=== PATIENT | female | born 1995 | race Caucasian/White ===

== ENCOUNTER 2022-05-03 13:57 | Inpatient (IN) | payer BC, SELFPAY ==
[2022-05-03] VITALS (10 sets, daily range): BP systolic 105–165; BP diastolic 76–108; PULSE 106–147; RESP 17–37; TEMP 37.2–37.4; O2SAT 96–100
--- NOTE | ~2022-05-03 | XR_ITS ---
EXAMINATION: XR lumbar spine 2-3V DATE: 05/03/2022 20:59 INDICATION: Low back pain TECHNIQUE: Anteroposterior and lateral views of the lumbar spine, and cone-down lateral view of the l umbosacral junction were obtained. COMPARISON: None. FINDINGS: Bone alignment is normal. There is no fracture. There is partial fusion of the L4 and L5 ve rtebral bodies associated loss of intervertebral disc space. The intervertebral disc space heights ar e otherwise maintained. IMPRESSION: 1. Partial fusion of the L4 and L5 vertebral bodies without acute osseous abnormality. Reviewed, dictated and finalized at location F. IMPRESSION: 1. Partial fusion of the L4 and L5 vertebral bodies without acute osseous abnor mality.
--- NOTE | ~2022-05-03 | XR_ITS ---
EXAMINATION: XR thoracic spine 2V DATE: 05/03/2022 20:58 INDICATION: Thoracic back pain TECHNIQUE: AP, lateral and lateral swimmer's views of the thoracic spine were obtained. COMPARISON: None. FINDINGS: There is no fracture, dislocation, or subluxation. The vertebral body heights, alignment, a nd intervertebral disc spaces are normal. The paravertebral soft tissues are unremarkable. IMPRESSION: 1. No acute osseous abnormality. Reviewed, dictated and finalized at location F.
--- NOTE | 2022-05-03 14:19 | ECG_ITS ---
Measurements Intervals [place] Rate: 133 P: 54 KS: 149 QRS: -9 QRSD: 81 T: 49 QT: 320 QTc: 478 Interpretive Statements SINUS TACHYCARDIA NONSPECIFIC ST ABNORMALITY BORDERLINE ECG NO PREVIOUS ECG AVAILABLE FOR COMPARISON Electronically Signed On 05-03-2022 17:58:02 CDT by Josemanuel Andrade M.D.
[2022-05-03 14:21] LABS: Glucose Point of Care 452 mg/dl (65-105)
--- NOTE | 2022-05-03 14:27 | ED.BACK ---
HPI - Back Pain/Injury General Chief Complaint: Back Pain/Injury Stated Complaint: abd pain to flank Time Seen by Provider: 05/03/22 14:11 History of Present Illness HPI Narrative: Pt presents with mid back pain for a couple of days but denies injury. Pt denies numbness or weakness or problems with bladder or bowels. Pt admits to excessive thirst but is not aware of being diabetic although her father is diabetic. Pt denies fever or dysuria or frequency. Related Data Home Medications Medication Instructions Recorded Confirmed No Home Medications 05/03/22 05/03/22 Allergies Allergy/AdvReac Type Severity Reaction Status Date / Time No Known Allergies Allergy Verified 05/03/22 14:14 Review of Systems Review of Systems: All systems reviewed & are unremarkable except as noted in HPI and below Exam Const: General: cooperative, alert and uncomfortable Orientation/consciousness: patient oriented x3 Limitations: no limitations HENMT: Mouth: Yes dry mucous membranes Neck: Neck: normal visual inspection, full ROM, no lymphadenopathy and supple Chest: Chest palpation & inspection: normal inspection of the chest Resp: Effort & Inspection: normal respiratory effort and able to speak in complete sentences (tachypneic) Auscultation: clear to auscultation bilaterally Percussion: percussion normal Cardio: Palpation: normal PMI Rate: tachycardic Rhythm: regular rhythm Peripheral pulses: Peripheral pulses 2+ throughout GI: Inspection: normal to inspection GI Palp: Yes Soft to palpation Auscultation: normal bowel sounds Back/Spine/Pelvis: Back: CVA tenderness Skin: General skin exam: normal color Neuro: General: patient oriented x3, no focal motor deficits and CN's II-XI intact bilaterally Cranial nerves: Yes Nystagmus not present Cognition (Neuro): normal cognition Speech: normal speech Motor exam (neuro): 5/5 motor strength present throughout Sensory Exam: normal sensation Extrem: General: normal to inspection, full ROM, capillary refill normal and no clubbing, cyanosis or edema Psych: Appearance: grossly normal Mental Status: mental status grossly normal Speech and movement: Normal speech and movement present Affect: Anxious affect present Attitude: cooperative Thought process: Normal thought process present Course Course Emergency Course: d/w dr kim said give more IVF and admit to HM and ICU d/w missy tafoya will see pt Vital Signs Vital signs: Vital Signs Pulse Rate 145 H 05/03/22 14:06 Respiratory Rate 32 H 05/03/22 14:06 Blood Pressure 148/98 H 05/03/22 14:06 Pulse Oximetry 98 05/03/22 14:06 Temperature 98.9 F 05/03/22 14:10 Pulse Rate 120 H 05/03/22 16:49 Respiratory Rate 31 H 05/03/22 16:49 Blood Pressure 129/85 05/03/22 16:49 Pulse Oximetry 100 05/03/22 16:49 Oxygen Delivery Room Air 05/03/22 14:10 MDM - Back Pain/Injury Lab Data Result diagrams: 05/03/22 15:14 05/03/22 15:14 Labs: Lab Results 05/03/22 05/03/22 05/03/22 Range/Units 14:07 14:44 15:14 WBC 15.9 H (4.5-10.0) K/mm3 RBC 5.56 H (4.2-5.4) M/mm3 Hgb 16.5 H (12.0-15.0) g/dL Hct 52.0 H (37.0-47.0) % MCV 93.5 (80-100) fl MCH 29.7 (26-34) pg MCHC 31.7 L (32-36) g/dl RDW 12.3 (11.5-14.5) % Plt Count 380 H (150-375) k/mm3 MPV 9.4 (7.4-10.4) fl Immature Gran % (Auto) 1.3 H (0-0.5) % Neut % (Auto) 80.5 H (45.5-73.1) % Lymph % (Auto) 11.1 L (18.3-44.2) % [place] % (Auto) 6.3 (2.6-8.5) % Eos % (Auto) 0.1 (0-4.4) % Baso % (Auto) 0.7 (0.2-1.2) % Lymph # (Auto) 1.77 (0.9-3.2) K/mm3 [place] # (Auto) 1.0 H (0.1-0.6) K/mm3 Eos # (Auto) 0.0 (0-0.3) K/mm3 Baso # (Auto) 0.1 (0.0-0.1) K/mm3 Abs Immat Gran (auto) 0.21 H (0.00-0.031) K/mm3 Absolute Neuts (auto) 12.8 H (1.3-6.7) K/mm3 Absolute Nucleated RBC 0.0 (0.0-0.012) K/mm3 Nucleated RBC % 0.0 (0.0-0.
[2022-05-03] MEDS: SODIUM CHLORIDE 0.9% IV 1,000 ML 999 ML IV CONT ×4 (14:39→18:38)
[2022-05-03] MEDS: fentaNYL CITRATE INJ (*CRX) 100 MCG/2 ML VIAL 50 MCG IV PUSH (14:40)
[2022-05-03] MEDS: ONDANSETRON INJ 4 MG/2 ML VIAL IV PUSH (14:40)
[2022-05-03] MEDS: INSULIN HUMAN REGULAR (*BKC) 100 UNITS/ML 8 UNITS IV PUSH (14:40)
[2022-05-03 14:59] LABS: Appearance Urine Clear (Clear); Bilirubin Urine 1+ (Negative); Blood Urine 1+ (Negative); Color Urine Yellow (Yellow); Glucose Urine UA 2+ mg/dL (Negative); Ketones Urine 4+ mg/dL (Negative); Leukocyte Esterase Ur Negative LEU/UL (Negative); Nitrate Urine Negative (Negative); Protein Urine 3+ mg/dL (Negative); Specific Grav Ur >= 1.030 (1.001-1.035); Urobilinogen Urine 0.2 mg/dL (<2.0)
[2022-05-03 15:03] LABS: Mucus Urine Rare /lpf; Squamous Epithelial Cell Urine Many /hpf (Few); WBC Urine 0-3 /hpf
[2022-05-03 15:05] LABS: Add Urine Microscopic? YES
[2022-05-03 15:19] LABS: Basophils Absolute Auto 0.1 K/mm3 (0.0-0.1); Basophils Percent Auto 0.7 % (0.2-1.2); Eosinophils Percent Auto 0.1 % (0-4.4); Hemoglobin 16.5 g/dL (12.0-15.0); Immature Granulocyte Absolute 0.21 K/mm3 (0.00-0.031); Immature Granulocyte Percent A 1.3 % (0-0.5); Lymphocytes Absolute Auto 1.77 K/mm3 (0.9-3.2); Lymphocytes Percent Auto 11.1 % (18.3-44.2); Mean Corpuscular HGB Conc 31.7 g/dl (32-36); Mean Corpuscular Hemoglobin 29.7 pg (26-34); Mean Corpuscular Volume 93.5 fl (80-100); Mean Platelet Volume 9.4 fl (7.4-10.4); Monocytes Percent Auto 6.3 % (2.6-8.5); Neutrophils Absolute Auto 12.8 K/mm3 (1.3-6.7); Neutrophils Percent Auto 80.5 % (45.5-73.1); Platelet Count Result 380 k/mm3 (150-375); Red Blood Count 5.56 M/mm3 (4.2-5.4); Red Cell Distribution Width 12.3 % (11.5-14.5); White Blood Count 15.9 K/mm3 (4.5-10.0)
[2022-05-03 15:27] LABS: Fractional Inspired Oxygen 21 %; HCO3 VBG 4.1 mEq/l (24.0-30.0); PO2 VBG 52.4 mmHg (35.0-45.0)
[2022-05-03 15:29] LABS: PCO2 VBG 21.8 mmHg (42.0-48.0); pH VBG 6.887 (7.300-7.400)
[2022-05-03 15:29] LABS: Alanine Aminotransferase 22 U/L (6-35); Alkaline Phosphatase 106 U/L (38-126); Aspartate Amino Transferase 23 U/L (14-36); Bilirubin,Total 0.5 mg/dL (0.2-1.3); Blood Urea Nitrogen 11 mg/dL (7-17); Calcium 8.9 mg/dL (8.4-10.2); Carbon Dioxide < 5 mmol/L (22-30); Chloride 107 mmol/L (98-107); Estimated CRCL calculation 93 ml/min; Estimated Glomerular Filt Rate > 60; Glucose 424 mg/dL (65-110); Lactic Acid Reflex 2.4 mmol/L (0.7-2.0); Lipase 482 U/L (23-300); Potassium 4.4 mmol/L (3.4-5.0); Sodium 138 mmol/L (137-145)
[2022-05-03 15:46] LABS: INR 1.3; Partial Thromboplastin Time 23.9 SECONDS (22.3-36.8); Prothrombin Time 15.9 Seconds (11.1-14.7)
[2022-05-03 16:06] LABS: Glucose Point of Care 345 mg/dl (65-105)
[2022-05-03] MEDS: INSULIN HUMAN REGULAR (*BKC) 100 UNITS in SODIUM CHLORIDE 0.9% IV 99 ML 7.3 UNITS IV CONT (16:44)
[2022-05-03 17:19] LABS: Glucose Point of Care 337 mg/dl (65-105)
--- NOTE | 2022-05-03 17:34 | PM.IMHP ---
H&P: [facility] History of Present Illness Date/Time: 05/03/22 17:34 Chief Complaint: Back pain Narrative: This 26-year-old female patient with no past medical history presents to the emergency room today with having complaints of mid back pain for the past couple of days. There was no acute injury to cause this pain. She denied any distal paresthesias and/or deficits in range of motion and she denied any saddle anesthesia and or loss of bowel or bladder control. She also endorsed being polydipsic seen she could not quite her thirst, and she had a very poor appetite. She notes that she has still been able to workout as usual and has not had any increased level of fatigue. She denies any other acute pain or complaints such as shortness of breath, chest pain, nausea, vomiting, diarrhea, polyuria, nocturia. She does share with me that her sister that is 2 years older than her was just recently diagnosed as a type 1 diabetic. In addition her father is also a diabetic. She takes no medications on a daily basis she has no medical allergies. Review of Systems Review of Systems: As noted in [facility] Family History Family History (Updated 05/03/22 @ 17:41 by ANDRE Crow) Other Diabetes mellitus Meds Home Medications and Allergies Home Medications Medication Instructions Recorded Confirmed Type No Home Medications 05/03/22 05/03/22 History Allergies Allergy/AdvReac Type Severity Reaction Status Date / Time No Known Allergies Allergy Verified 05/03/22 14:14 Vital Signs Vital Signs - 24 hr 05/03/22 14:10 05/03/22 14:06 05/03/22 14:31 Temperature 98.9 F Pulse Rate 147 H 145 H 137 H Respiratory Rate 37 H 32 H 34 H Blood Pressure 148/98 H 148/98 H 165/108 H Pulse Oximetry 97 98 96 Oxygen Delivery Room Air 05/03/22 15:01 05/03/22 16:49 Temperature Pulse Rate 129 H 120 H Respiratory Rate 26 H 31 H Blood Pressure 160/100 H 129/85 Pulse Oximetry 99 100 Oxygen Delivery Exam Const: General: comfortable Other: Ketotic breath noted on exam. Pt. appears acutely ill but comfortable. HENMT: Ears: TM's normal bilaterally General nose exam: Normal nares present Mouth: Yes dry mucous membranes and Yes Abnormal oral and palatal mucosa present other (Dry and pasty. Lips are chapped.) Eyes: General: appearance normal, both eyes and all related structures Sclera: sclerae normal Pupils: Equal, round and reactive pupils present EOM: EOMs intact bilaterally Neck: Neck: supple and no JVD Thyroid: thyroid normal Carotids: no bruits Lymphatic: lymphadenopathy not noted Chest: Other: No tenderness to palpation. Resp: Effort & Inspection: abnormal respiratory effort (Pt. with Kussmaul respirations.) Auscultation: clear to auscultation bilaterally Cardio: Rate: tachycardic Rhythm: regular rhythm Heart sounds: no gallops, no murmurs and no rubs Other: S1 and S2 present without any S3, S4, m,r,g,h GI: Inspection: non-distended GI Palp: Yes Soft to palpation, No Tenderness to palpation present (GI) and No Guarding due to palpation present (GI) Auscultation: normal bowel sounds Back/Spine/Pelvis: Back: no CVA tenderness Cervical Spine: normal cervical lordosis and cervical ROM normal Thoracic/Lumbar Spine: thoracic and lumbar spine normal to inspection, straight leg raise negative bilaterally, pain with thoraco-lumbar ROM, paraspinal muscle tenderness and No thoraco-lumbar ROM limited Sacroiliac joints: on the right nontender and on the left nontender Skin: General skin exam: normal color and no rashes or lesions noted Neuro: General: gait normal Speech: normal speech Motor exam (neuro): 5/5 motor strength present throughout and Normal motor muscle tone present throughout Sensory Exam: normal sensation Extrem: General: normal to inspection, no edema and no pedal edema Other: Pt. freely and easily MAEW. Psych: Mental Status: mental status grossly normal Affect: normal affect
[2022-05-03 17:45] LABS: Glucose Point of Care 297 mg/dl (65-105)
--- NOTE | 2022-05-03 18:08 | PC.NURSE ---
Notified Dr. Colon that patient has arrived in ICU. New orders for DKA protocol set as well as 1L NS bolus before starting fluids on the DKA protocol.
[2022-05-03 18:17] LABS: Reflex Lactic Acid Yes or No Add Lactic
[2022-05-03 18:38] LABS: Basophils Absolute Auto 0.1 K/mm3 (0.0-0.1); Basophils Percent Auto 0.5 % (0.2-1.2); Hematocrit 49.3 % (37.0-47.0); Immature Granulocyte Absolute 0.26 K/mm3 (0.00-0.031); Immature Granulocyte Percent A 1.4 % (0-0.5); Lymphocytes Absolute Auto 2.09 K/mm3 (0.9-3.2); Lymphocytes Percent Auto 11.2 % (18.3-44.2); Mean Corpuscular HGB Conc 32.5 g/dl (32-36); Mean Corpuscular Hemoglobin 30.1 pg (26-34); Mean Corpuscular Volume 92.8 fl (80-100); Mean Platelet Volume 9.7 fl (7.4-10.4); Monocytes Absolute Auto 0.9 K/mm3 (0.1-0.6); Monocytes Percent Auto 4.9 % (2.6-8.5); Neutrophils Absolute Auto 15.2 K/mm3 (1.3-6.7); Platelet Count Result 287 k/mm3 (150-375); Red Blood Count 5.31 M/mm3 (4.2-5.4); Red Cell Distribution Width 12.2 % (11.5-14.5); White Blood Count 18.6 K/mm3 (4.5-10.0)
[2022-05-03 18:51] LABS: SPREG INTERNAL CONTROL Positive; Serum Qual hCG Negative
[2022-05-03 18:51] LABS: Glucose Point of Care 237 mg/dl (65-105)
[2022-05-03 18:52] LABS: Alanine Aminotransferase 19 U/L (6-35); Albumin Level 4.8 g/dL (3.5-5.1); Alkaline Phosphatase 87 U/L (38-126); Aspartate Amino Transferase 18 U/L (14-36); Bilirubin,Total 0.5 mg/dL (0.2-1.3); Blood Urea Nitrogen 10 mg/dL (7-17); Calcium 8.6 mg/dL (8.4-10.2); Carbon Dioxide < 5 mmol/L (22-30); Chloride 113 mmol/L (98-107); Estimated CRCL calculation 124 ml/min; Estimated Glomerular Filt Rate > 60; Glucose 279 mg/dL (65-110); Potassium 4.7 mmol/L (3.4-5.0); Sodium 138 mmol/L (137-145)
[2022-05-03 18:52] LABS: Lactic Acid Reflex 2.1 mmol/L (0.7-2.0)
[2022-05-03 19:16] LABS: Hemoglobin A1C > 14.0 % (<5.7)
[2022-05-03 19:17] LABS: Beta-Hydroxybutyrate/Acetoacetate 6.37 mmol/L (0.02-0.27)
[2022-05-03] MEDS: KCL 20 MEQ/D5/0.45% SOD CHL 1,000 ML 150 ML IV CONT (19:41)
[2022-05-03 19:53] LABS: Glucose Point of Care 171 mg/dl (65-105)
[2022-05-03] MEDS: fentaNYL CITRATE INJ (*CRX) 100 MCG/2 ML VIAL 25 MCG IV PUSH (20:39)
[2022-05-03 21:15] LABS: Glucose Point of Care 161 mg/dl (65-105)
[2022-05-03 22:07] LABS: Glucose Point of Care 169 mg/dl (65-105)
[2022-05-03 23:07] LABS: Glucose Point of Care 183 mg/dl (65-105)
[2022-05-04] VITALS (10 sets, daily range): BP systolic 91–122; BP diastolic 56–89; PULSE 93–112; RESP 14–20; TEMP 36.4–37.8; O2SAT 98–100
[2022-05-04 00:14] LABS: Glucose Point of Care 165 mg/dl (65-105)
[2022-05-04 01:22] LABS: Glucose Point of Care 161 mg/dl (65-105)
[2022-05-04] MEDS: KCL 20 MEQ/D5/0.45% SOD CHL 1,000 ML 150 ML IV CONT ×2 (02:05→09:04)
[2022-05-04 02:08] LABS: Anion Gap 10 mmol/L (8-16); Blood Urea Nitrogen 6 mg/dL (7-17); Carbon Dioxide 13 mmol/L (22-30); Chloride 113 mmol/L (98-107); Estimated CRCL calculation 178 ml/min; Estimated Glomerular Filt Rate > 60; Glucose 159 mg/dL (65-110); Potassium 3.5 mmol/L (3.4-5.0); Sodium 136 mmol/L (137-145)
[2022-05-04 02:10] LABS: Glucose Point of Care 151 mg/dl (65-105)
[2022-05-04 03:10] LABS: Glucose Point of Care 150 mg/dl (65-105)
[2022-05-04 04:26] LABS: Glucose Point of Care 137 mg/dl (65-105)
[2022-05-04 05:15] LABS: Glucose Point of Care 117 mg/dl (65-105)
[2022-05-04] MEDS: ONDANSETRON INJ 4 MG/2 ML VIAL IV PUSH (05:19)
[2022-05-04 06:11] LABS: Glucose Point of Care 139 mg/dl (65-105)
[2022-05-04 06:40] LABS: Anion Gap 10 mmol/L (8-16); Blood Urea Nitrogen 6 mg/dL (7-17); Calcium 8.1 mg/dL (8.4-10.2); Carbon Dioxide 12 mmol/L (22-30); Chloride 113 mmol/L (98-107); Estimated CRCL calculation 231 ml/min; Estimated Glomerular Filt Rate > 60; Glucose 140 mg/dL (65-110); Lipase 69 U/L (23-300); Potassium 3.8 mmol/L (3.4-5.0); Sodium 135 mmol/L (137-145)
[2022-05-04 07:01] LABS: Glucose Point of Care 147 mg/dl (65-105)
[2022-05-04] MEDS: LACTATED RINGERS 1,000 ML 999 ML IV CONT (07:57)
[2022-05-04 08:08] LABS: Glucose Point of Care 152 mg/dl (65-105)
[2022-05-04 08:59] LABS: Glucose Point of Care 127 mg/dl (65-105)
[2022-05-04 10:06] LABS: Glucose Point of Care 127 mg/dl (65-105)
[2022-05-04 10:19] LABS: Anion Gap 3 mmol/L (8-16); Blood Urea Nitrogen 4 mg/dL (7-17); Carbon Dioxide 18 mmol/L (22-30); Chloride 115 mmol/L (98-107); Estimated CRCL calculation 231 ml/min; Estimated Glomerular Filt Rate > 60; Glucose 120 mg/dL (65-110); Potassium 3.3 mmol/L (3.4-5.0); Sodium 136 mmol/L (137-145)
[2022-05-04] MEDS: INSULIN HUMAN REGULAR (*BKC) 100 UNITS in SODIUM CHLORIDE 0.9% IV 99 ML IV CONT (10:31)
[2022-05-04] MEDS: INSULIN GLARGINE (*BKC) 100 UNITS/ML 30 UNITS SUB-Q (11:20)
[2022-05-04] MEDS: POTASSIUM CHLORIDE 20 MEQ TABLET 40 MEQ PO (11:23)
[2022-05-04 11:31] LABS: Glucose Point of Care 129 mg/dl (65-105)
--- NOTE | 2022-05-04 12:01 | PCDIET ---
Physician consult for DKA. See Nutritional Teaching Intervention. Thank you for the consult.
[2022-05-04 12:31] LABS: Glucose Point of Care 140 mg/dl (65-105)
--- NOTE | 2022-05-04 13:36 | WPDCNINT ---
Assessment and Plan Assessment and plan (1) DKA (diabetic ketoacidosis): Code(s): E11.10 - Type 2 diabetes mellitus with ketoacidosis without coma Status: Acute Assessment and Plan: New onset diabetes with diabetic ketoacidosis. Patient has a family history of diabetes were her father and her sister have diabetes -patient was complaining of polydipsia, back pain. In the ER patient was found to have elevated blood sugars for positive beta hydroxybutyrate, anion gap metabolic acidosis. Was given 2 L IV fluid bolus and started on insulin infusion per DKA protocol -patient was given an additional 1 L fluid bolus in the ICU this morning -repeat labs showed normal anion gap, blood sugar is normal limits, patient was transition to long-acting insulin and sliding scale insulin -will start diabetic diet -hemoglobin A1c > 14 -will have dietitian and chemical educator follow up patient (2) Strain of lumbar region: Code(s): S39.012A - Strain of muscle, fascia and tendon of lower back, initial encounter Status: Acute Assessment and Plan: X-ray of the thoracic spine showed no acute osseous abnormality. Lumbar spine x-ray showed partial fusion of L4 and L5 vertebral bodies without acute osseous abnormality. -denies any pain this morning Plan -Transition patient to long-acting insulin Lantus and sliding scale insulin Accu-Cheks -dietitian and chemical educator to follow the patient -will start diabetic diet Additional Plan Code status: Full code Critical care time spent: 44 minutes This dictation may have been done utilizing a voice recognition system. Attempts have been made to correct errors. However, there may be uncorrected grammatical, spelling, and recognition errors present. Due to a high probability of clinically significant, life threatening deterioration, the patient required my highest level of preparedness to intervene emergently and I personally spent this critical care time directly and personally managing the patient. This critical care time included obtaining a history; examining the patient; pulse oximetry; ordering and review of studies; arranging urgent treatment with development of a management plan; evaluation of patient's response to treatment; frequent reassessment; and discussions with other providers. It was exclusive of separately billable procedures and treating other patients and teaching time. Please see Assessment and Plan section and the rest of the note for further information on patient assessment and treatment Chair And Couch Maker Consult Note Consult date: 05/04/22 Reason for consult: Diabetic ketoacidosis HPI: Cande Crawford is a 26 year old female with no significant past medical history presented to the ED on 05/03/2022 with complains of back pain, polydipsia, decreased appetite. Denies any weakness or numbness. She also denies any bladder or bowel problem. Denies any fevers, no dysuria. In the ER patient was found to have elevated blood sugars, anion gap metabolic acidosis and positive beta hydroxybutyrate. Serum hCG was negative in the ER. UA was also negative UTI but was positive for glucose, proteins, ketones. X-ray of the thoracic spine showed no acute osseous abnormality. Lumbar spine x-ray showed partial fusion of L4 and L5 vertebral bodies without acute osseous abnormality. Patient was given 2 L IV fluid bolus and started on insulin infusion and transferred to the ICU for further management. Patient seen and examined this morning in the ICU, pleasant female, not in acute distress. Denies any back pain, nausea vomiting. Denies any abdominal pain, chest pain, shortness when. Remains on insulin infusion, I have asked the bedside RN to given additional IV fluid bolus. Hemoglobin A1c is > 14.0. Review of Systems Review of Systems: All systems reviewed & are unremarkable except as noted in HPI and below [facility] Family History Family History (Updated 05/03/22 @ 18:48 by Korina
[2022-05-04 14:28] LABS: Anion Gap 7 mmol/L (8-16); Blood Urea Nitrogen 5 mg/dL (7-17); Calcium 8.3 mg/dL (8.4-10.2); Carbon Dioxide 18 mmol/L (22-30); Chloride 109 mmol/L (98-107); Estimated CRCL calculation 110 ml/min; Estimated Glomerular Filt Rate > 60; Glucose 263 mg/dL (65-110); Potassium 3.7 mmol/L (3.4-5.0); Sodium 134 mmol/L (137-145)
--- NOTE | 2022-05-04 14:53 | PC.NURSE ---
Report given to LUIS Avendaño. All questions answered. Pt transferred via wheelchair, accompanied by RN.
--- NOTE | 2022-05-04 15:00 | PC.NURSE ---
This patient, Cande Crawford, was received from ICU on 05/04/22 at 1523. Patient/family oriented to unit policies and routines. Report received from LUIS Segal.
[2022-05-04 16:30] LABS: Glucose Point of Care 228 mg/dl (65-105)
[2022-05-04] MEDS: INSULIN ASPART (*BKC) 100 UNITS/ML SUB-Q (16:32)
--- NOTE | 2022-05-04 17:19 | PM.IMPN ---
Progress Note: A&P Assessment and Plan (1) DKA (diabetic ketoacidosis): Code(s): E11.10 - Type 2 diabetes mellitus with ketoacidosis without coma Status: Acute (2) Strain of lumbar region: Code(s): S39.012A - Strain of muscle, fascia and tendon of lower back, initial encounter Status: Acute Plan 05/03/22 Patient admitted critically ill in DKA with new onset diabetes mellitus -admit patient to ICU -unable to calculate anion gap as CO2 is less than 5.? Lactic acid is 2.4.? Reflex lactic was ordered. -fish machine feeder has been consulted. -continue insulin drip -continue IV hydration, currently receiving 2nd bolus of 1 L. will follow ICU DKA order set. -will keep patient NPO -trend labs and vitals.: -will order plain film x-rays of thoracic and lumbar spine. For low back pain -pain management as needed. 05/04/22 Patient monitored overnight in the ICU on insulin drip anion gap closed and patient was cleared by fish machine feeder for discharge to general medical floor for ongoing care of new onset diabetes hemoglobin A1c > 14 patient was transition to long-acting insulin and sliding scale insulin diabetic diet Consult dietitian Consult clinical trial educator Subjective Date/time seen: 05/04/22 17:19 pt doing ok, has had diabetic nutritional educations still unable to inject herself. Pt advised to practice w RNs overnight with anticiption of dc tomorrow Exam Narrative: General: Pleasant female NAD HEENT: Moist oral mucosa,EOMI anicteric Neck: Supple, no JVD Respiratory: Clear to auscultation bilaterally, no wheezing, or crackles Cardiac: RRR, S1-S2 normal Abdomen: Soft, NTTP, nondistended Extremities: No edema, palpable pedal pulse Neuro: Alert, awake, oriented, nonfocal Skin: Warm and dry Psych: Normal affect and mentation Objective Data Vital Signs Vital Signs: Vital Signs - 24 hr 05/03/22 17:38 05/03/22 18:00 05/03/22 18:00 Temperature Pulse Rate 121 H 112 H 106 H Respiratory Rate 31 H 33 H Blood Pressure 124/89 120/77 Pulse Oximetry 100 99 Oxygen Delivery 05/03/22 19:50 05/03/22 20:00 05/03/22 22:00 Temperature 99.3 F Pulse Rate 107 H 110 H 113 H Respiratory Rate 19 Blood Pressure 116/86 Pulse Oximetry 100 Oxygen Delivery 05/03/22 20:00 05/03/22 22:00 05/04/22 00:00 Temperature 98.6 F Pulse Rate 113 H 110 H 112 H Respiratory Rate 17 17 17 Blood Pressure 105/76 92/56 L Pulse Oximetry 100 100 99 Oxygen Delivery Room Air 05/04/22 00:00 05/04/22 00:00 05/04/22 02:00 Temperature Pulse Rate 112 H 112 H 104 H Respiratory Rate 17 Blood Pressure Pulse Oximetry 99 Oxygen Delivery Room Air 05/04/22 02:00 05/04/22 04:00 05/04/22 04:00 Temperature 99.1 F Pulse Rate 104 H 103 H 103 H Respiratory Rate 16 14 Blood Pressure 91/60 L 99/66 L Pulse Oximetry 99 99 Oxygen Delivery 05/04/22 04:00 05/04/22 06:00 05/04/22 06:00 Temperature Pulse Rate 103 H 98 97 Respiratory Rate 14 19 Blood Pressure 94/60 L Pulse Oximetry 99 98 Oxygen Delivery Room Air 05/04/22 07:52 05/04/22 08:00 05/04/22 08:00 Temperature 100.1 F H Pulse Rate 95 93 Respiratory Rate 16 Blood Pressure 97/69 L Pulse Oximetry 99 Oxygen Delivery Room Air 05/04/22 10:00 05/04/22 10:00 05/04/22 12:00 Temperature Pulse Rate 96 97 96 Respiratory Rate 15 17 Blood Pressure 91/59 L Pulse Oximetry 98 99 Oxygen Delivery Room Air 05/04/22 12:00 05/04/22 12:00 05/04/22 13:17 Temperature 99.2 F Pulse Rate 97 99 Respiratory Rate 17 Blood Pressure 95/63 L Pulse Oximetry 98 Oxygen Delivery Intake/Output Intake/Output: Intake & Output 05/01/22 05/02/22 05/03/22 05/04/22 23:59 23:59 23:59 23:59 Intake Total 4000 4240.25 Output Total 3450 Balance 4000 790.25 Meds/Results Medications: Active Medications Generic Name Dose Route Start Last Admin Trade Name Freq PRN Reason Stop Dose Admin
[2022-05-04 18:32] LABS: Anion Gap 7 mmol/L (8-16); Blood Urea Nitrogen 7 mg/dL (7-17); Calcium 8.4 mg/dL (8.4-10.2); Carbon Dioxide 18 mmol/L (22-30); Chloride 111 mmol/L (98-107); Estimated CRCL calculation 149 ml/min; Estimated Glomerular Filt Rate > 60; Glucose 327 mg/dL (65-110); Potassium 3.4 mmol/L (3.4-5.0); Sodium 136 mmol/L (137-145)
[2022-05-04 21:04] LABS: Glucose Point of Care 249 mg/dl (65-105)
[2022-05-05 06:19] VITALS: BP 113/85; PULSE 95; RESP 14; TEMP 36.4; O2SAT 100
[2022-05-05 07:44] LABS: Glucose Point of Care 262 mg/dl (65-105)
[2022-05-05] MEDS: INSULIN ASPART (*BKC) 100 UNITS/ML SUB-Q ×3 (07:46→16:26)
[2022-05-05] MEDS: INSULIN GLARGINE (*BKC) 100 UNITS/ML 30 UNITS SUB-Q (07:47)
[2022-05-05 09:02] VITALS: O2SAT 98
[2022-05-05 11:39] LABS: Glucose Point of Care 222 mg/dl (65-105)
--- NOTE | 2022-05-05 12:25 | PM.DS ---
DS: Admitting Diagnosis Discharge Date 05/05/22 Admitting Diagnosis (1) DKA (diabetic ketoacidosis): ?Code(s): E11.10 - Type 2 diabetes mellitus with ketoacidosis without coma ?Status:?Acute ?Assessment and Plan: (2) Strain of lumbar region: ?Code(s): S39.012A - Strain of muscle, fascia and tendon of lower back, initial encounter ?Status:?Acute ?Assessment and Plan: DS: Discharge Diagnosis Discharge Diagnosis (1) DKA (diabetic ketoacidosis): Code(s): E11.10 - Type 2 diabetes mellitus with ketoacidosis without coma Status: Deleted (2) Strain of lumbar region: Code(s): S39.012A - Strain of muscle, fascia and tendon of lower back, initial encounter Status: Acute (3) Diabetes mellitus, new onset: Code(s): E11.9 - Type 2 diabetes mellitus without complications Status: Deleted (4) DM (diabetes mellitus) type 1, uncontrolled, with ketoacidosis: Code(s): E10.10 - Type 1 diabetes mellitus with ketoacidosis without coma Status: Acute (5) New onset type 1 diabetes mellitus, uncontrolled: Status: Acute DS: Summary Hospital Course Reason for hospitalization: back pain Hospital Course: This 26-year-old female patient with no past medical history presents to the emergency room today with having complaints of mid back pain for the past couple of days.? There was no acute injury to cause this pain.? She denied any distal paresthesias and/or deficits in range of motion and she denied any saddle anesthesia and or loss of bowel or bladder control.? She also endorsed being polydipsic seen she could not quite her thirst, and she had a very poor appetite.? She notes that she has still been able to workout as usual and has not had any increased level of fatigue. She denies any other acute pain or complaints such as shortness of breath, chest pain, nausea, vomiting, diarrhea, polyuria, nocturia.? She does share with me that her sister that is 2 years older than her was just recently diagnosed as a type 1 diabetic.? In addition her father is also a diabetic.? She takes no medications on a daily basis she has no medical allergies. 05/03/22 Patient admitted critically ill in DKA with new onset diabetes mellitus -admit patient to ICU -unable to calculate anion gap as CO2 is less than 5.? Lactic acid is 2.4.? Reflex lactic was ordered. -acrylic fabricator has been consulted. -continue insulin drip -continue IV hydration, currently receiving 2nd bolus of 1 L. will follow ICU DKA order set. -will keep patient NPO -trend labs and vitals.: -will order plain film x-rays of thoracic and lumbar spine.? For low back pain -pain management as needed. 05/04/22 Patient monitored overnight in the ICU on insulin drip anion gap closed and patient was cleared by acrylic fabricator for discharge to general medical floor for ongoing care of new onset diabetes hemoglobin A1c > 14 patient was transition to long-acting insulin and sliding scale insulin diabetic diet Consult dietitian Consult prosthodontist/educator 05/05/22 26-year-old female admitted with new onset type 1 diabetes in DKA. She was monitored in ICU and placed on insulin drip. Patient responded appropriately to medical therapy and was transition without complication to subcutaneous insulin. She was provided diabetic Education and was subsequently discharged home in stable condition with indications to follow up with her primary care physician for referral to Endocrinology for ongoing care. pt blood glucose not at goal but stable in the low 200s (did not get insulin last night) dc home on Lantus 35U q am w Med ISS and indications given for her to followup with her PCP for referral to Endocrinology. She is also requested to keep a BG journal to take back to her PCP at first available appt. pt does demonstrate ability to inject herself and to check her blood sugar prior to discharge She has been given diabetic Education Additionally, I have spoken with her abou
[2022-05-05 14:00] VITALS: BP 106/68; PULSE 105; RESP 14; TEMP 37.1; O2SAT 99
[2022-05-05 16:25] LABS: Glucose Point of Care 247 mg/dl (65-105)
== END 2022-05-05 17:11 | disposition home or self-care (01) | DRG 639 ==
LOC: ANHED 16:23 → ANHICU 17:13 → ANH2MED 05-04 16:27 → ANHICU 05-07 12:31
PROVIDERS: Nurse Practitioner Adult Health; Admitting Provider Chiropractor; Emergency Provider Emergency Medicine; Visit Provider Hospitalist
DX: E11.10 Type 2 diabetes mellitus with ketoacidosis without coma (principal); S39.012A Strain of muscle, fascia and tendon of lower back, initial encounter; F17.290 Nicotine dependence, other tobacco product, uncomplicated
CPT/HCPCS: 36415; 72070; 72100; 80048; 80053; 81001; 81025; 82010; 82803; 82948; 83036; 83605; 83690; 83735; 84100; 84443; 84703; 85025; 85610; 85730; 93005; 96361; 96365; 96375; 99285; A9270; J1815; J2405; J3010; J3480; J7030; J7120

== ENCOUNTER 2023-01-18 14:37 | Emergency (ER) | payer BC, SELFPAY ==
[2023-01-18] VITALS (10 sets, daily range): BP systolic 96–131; BP diastolic 63–85; PULSE 84–104; RESP 16–17; TEMP 36.6; O2SAT 98–100
[2023-01-18] MEDS: KETOROLAC 15 MG/ML VIAL (*BKC) IV PUSH (16:02)
[2023-01-18] MEDS: SODIUM CHLORIDE 0.9% IV 1,000 ML 999 ML IV CONT (16:02)
[2023-01-18] MEDS: diphenhydrAMINE HCl INJ 50 MG/ML VIAL 25 MG IV PUSH (16:03)
[2023-01-18] MEDS: PROCHLORPERAZINE EDISYLATE 10 MG/2 ML VIAL IV PUSH (16:03)
--- NOTE | 2023-01-18 16:51 | ED.GENADULT ---
HPI - General Adult General Chief complaint: Headache Stated complaint: headache Time Seen by Provider: 01/18/23 15:30 History of Present Illness HPI narrative: 27-year-old female with history of migraines presented to the emergency department for evaluation of persistent headache. Patient states that this morning she had onset of headache that did involve vision changes that had subsequent nausea and vomiting. Patient does have current photophobia. Patient states this headache started similar to her previous and patient has had these symptoms with her previous headaches. Patient denies anything unusual about this headache and its onset character or intensity. Related Data Allergies Allergy/AdvReac Type Severity Reaction Status Date / Time No Known Allergies Allergy Verified 01/18/23 15:31 Review of Systems Review of Systems: CONSTITUTIONAL: Denies fever, chills, or sweats. EYES: Denies visual changes, redness, or discharge. ENT: Denies rhinorrhea, congestion, sore throat, or otalgia. CARDIOVASCULAR: Denies chest pain, palpitations, or edema. RESPIRATORY: Denies cough or dyspnea. GASTROINTESTINAL: Denies abdominal pain, nausea, vomiting, or diarrhea. GENITOURINARY: Denies dysuria or hematuria. SKIN: Denies rash or itching. MUSCULOSKELETAL: Denies back pain, joint pain, or myalgia. NEUROLOGIC: See HPI [facility] Family History Family History (Updated 05/03/22 @ 18:48 by Shauna Tabares RN) Father Diabetes mellitus Sibling Diabetes mellitus Social History Social History Smoking status: Current every day smoker Tobacco type: e-cigarettes/vaping Additional smoking assessment comments: e-cigs x 1 month 2 years ago Alcohol intake: current Drinks per week: 3 Substance use type: other Other substance usage details: gummies Spiritual care concerns: No Exam Narrative: APPEARANCE: Well appearing, no pain, no distress, well-nourished. HEAD: normocephalic, atraumatic. EYES: PERRLA/EOMI, conjunctivae clear. NOSE: Normal no drainage EARS:TMS clear with good light reflex. THROAT: Pharynx clear, no exudate. NECK: Supple. No adenopathy, no masses. RESPIRATORY: Airway patent, respirations nonlabored. Clear to auscultation bilaterally, no rales, rhonchi, wheezing. CARDIOVASCULAR: Regular rate and rhythm without murmurs rubs or gallops. ABDOMINAL: Soft, nontender, nondistended, normal bowel sounds MUSCULOSKELETAL: Moves all extremities. Strength/ROM intact, No edema, No calf tenderness. NEURO: Alert. Cranial nerves II through XII intact. Grossly intact. No ataxia, no drift, normal strength and reflexes SKIN: Warm, dry. Normal Color Course Course Emergency Course: 27-year-old female with symptoms consistent with a migraine. Patient was treated with a migraine cocktail and had significant improvement. Patient was treated with IV saline, IV Toradol, IV Benadryl and IV Compazine. On reexamination patient states that her headache is resolved. Patient was encouraged of close follow-up with neurology. Patient was also encouraged to start taking a headache diary in order to identify different triggers for her headaches. All question concerns were addressed. Vital Signs Vital signs: Vital Signs Temperature 97.8 F 01/18/23 14:41 Pulse Rate 104 H 01/18/23 14:41 Respiratory Rate 16 01/18/23 14:41 Blood Pressure 131/85 01/18/23 14:41 Pulse Oximetry 100 01/18/23 14:41 Oxygen Delivery Room Air 01/18/23 14:41 Temperature 97.8 F 01/18/23 14:41 Pulse Rate 90 01/18/23 17:01 Respiratory Rate 17 01/18/23 17:01 Blood Pressure 118/83 01/18/23 17:01 Pulse Oximetry 100 01/18/23 17:01 Oxygen Delivery Room Air 01/18/23 14:41 Medical Decision Making Vital Signs Vital Signs: Vital Signs Temperature 97.8 F 01/18/23 14:41 Pulse Rate 104 H 01/18/23 14:41 Respiratory Rate 16 01/18/23 14:41 Blood Pressure 131/85
== END 2023-01-18 17:17 | disposition home or self-care (01) ==
PROVIDERS: Emergency Provider Emergency Medicine
DX: G43.909 Migraine, unspecified, not intractable, without status migrainosus (principal); F17.290 Nicotine dependence, other tobacco product, uncomplicated
CPT/HCPCS: 96361; 96374; 96375; 99284; J0780; J1200; J1885; J7030

== ENCOUNTER 2024-01-09 06:16 | Emergency (ER) | payer BC, SELFPAY ==
[2024-01-09 06:21] VITALS: BP 131/73; PULSE 97; RESP 18; TEMP 36.6; O2SAT 100
--- NOTE | 2024-01-09 06:39 | PC.NURSE ---
[facility] erp Dr. Muhammad Reglan 10 IV Push
[2024-01-09] MEDS: METOCLOPRAMIDE HCL INJ 10 MG/2 ML VIAL IV PUSH (06:41)
[2024-01-09 06:53] LABS: Basophils Percent Auto 0.3 % (0.2-1.2); Eosinophils Absolute Auto 0.2 K/mm3 (0-0.3); Eosinophils Percent Auto 1.4 % (0-4.4); Hematocrit 40.1 % (37.0-47.0); Hemoglobin 13.3 g/dL (12.0-15.0); Immature Granulocyte Absolute 0.04 K/mm3 (0.00-0.031); Immature Granulocyte Percent A 0.3 % (0-0.5); Lymphocytes Percent Auto 42.2 % (18.3-44.2); Mean Corpuscular HGB Conc 33.2 g/dl (32-36); Mean Corpuscular Hemoglobin 28.1 pg (26-34); Mean Corpuscular Volume 84.8 fl (80-100); Mean Platelet Volume 9.5 fl (7.4-10.4); Monocytes Absolute Auto 0.5 K/mm3 (0.1-0.6); Monocytes Percent Auto 4.7 % (2.6-8.5); Neutrophils Absolute Auto 5.9 K/mm3 (1.3-6.7); Neutrophils Percent Auto 51.1 % (45.5-73.1); Platelet Count Result 430 k/mm3 (150-375); Red Blood Count 4.73 M/mm3 (4.2-5.4); Red Cell Distribution Width 12.5 % (11.5-14.5); White Blood Count 11.6 K/mm3 (4.5-10.0)
[2024-01-09 07:02] LABS: Alanine Aminotransferase 23 U/L (6-35); Alkaline Phosphatase 83 U/L (38-126); Anion Gap 9 mmol/L (8-16); Aspartate Amino Transferase 29 U/L (14-36); Bilirubin,Total 0.6 mg/dL (0.2-1.3); Blood Urea Nitrogen 7 mg/dL (7-17); Calcium 9.4 mg/dL (8.4-10.2); Carbon Dioxide 23 mmol/L (22-30); Chloride 104 mmol/L (98-107); Estimated CRCL calculation 201 ml/min; Estimated Glomerular Filt Rate > 60; Glucose 151 mg/dL (65-110); Lipase 23 U/L (23-300); Potassium 3.8 mmol/L (3.4-5.0); Sodium 136 mmol/L (137-145)
[2024-01-09 07:20] LABS: Appearance Urine Clear (Clear); Bilirubin Urine Negative (Negative); Blood Urine Negative (Negative); Color Urine Yellow (Yellow); Glucose Urine UA Negative (Negative); Ketones Urine 1+ mg/dL (Negative); Leukocyte Esterase Ur Negative LEU/UL (Negative); Nitrate Urine Negative (Negative); Protein Urine Negative (Negative); Specific Grav Ur 1.015 (1.001-1.035); Urobilinogen Urine 0.2 mg/dL (<2.0); pH Urine 7.5 (5.0-9.0)
--- NOTE | 2024-01-09 07:20 | ED.GENADULT ---
HPI - General Adult General Chief complaint: Nausea/Vomiting/Diarrhea Stated complaint: n/v, headache, 8 weeks Time Seen by Provider: 01/09/24 07:03 History of Present Illness HPI narrative: Patient is a 28-year-old female who presents the emergency department this morning complaining of nausea, vomiting, and headache. Patient states that she is approximately 8 weeks , 1st and follows up with OBDr. Damon VIDALES through the [facility]. Patient states that she was prescribed oral Reglan and to use as needed, however, she is not been able to keep down her oral medications and decided to come to the emergency department for IV medications and IV hydration. Patient denies any additional symptoms including chest pain, shortness of breath, abdominal pain, dysuria, hematuria, vaginal bleeding or spotting, constipation, diarrhea, melena, hematochezia, fevers or chills. Patient also denies any dizziness, lightheadedness, blurry visions, focal weakness, numbness and or tingling. There are no other modifying, alleviating, or precipitating factors at this time. Related Data Allergies Allergy/AdvReac Type Severity Reaction Status Date / Time No Known Allergies Allergy Verified 01/09/24 06:24 Review of Systems Review of Systems: All systems are reviewed and are negative unless stated otherwise in the HPI. PMFSH Family History Family History Father Diabetes mellitus Sibling Diabetes mellitus Social History Social History Smoking status: Current every day smoker Tobacco type: e-cigarettes/vaping Additional smoking assessment comments: e-cigs x 1 month 2 years ago Alcohol intake: current Drinks per week: 3 Substance use type: other Other substance usage details: gummies Spiritual care concerns: No Exam Narrative: General: Alert, awake, afebrile, in no acute distress. HEENT: PERRL, no rhinorrhea, no post nasal drip, oropharynx clear. Neck: Trachea midline, no JVD, no lymphadenopathy. Cardiovascular: Regular rate and rhythm, no murmurs, rubs or gallops, no peripheral edema. Respiratory: Clear to auscultation bilaterally, no tachypnea, no wheezing, no rhonchi, no rubs, no respiratory distress. Abdomen: Soft, nontender, nondistended, no rebound, no guarding, no peritoneal signs. Musculoskeletal: No joint swelling or deformity, normal muscle tone. Skin: No rashes or petechia, no signs of infection. Psychiatric: Alert and oriented, normal behavior and judgment for situation. Neurological: Alert and oriented to person, place, and time. Follows all commands. No focal deficits, speech is clear and fluent. Course Vital Signs Vital signs: Vital Signs Temperature 97.9 F 01/09/24 06:21 Pulse Rate 97 01/09/24 06:21 Respiratory Rate 18 01/09/24 06:21 Blood Pressure 131/73 01/09/24 06:21 Pulse Oximetry 100 01/09/24 06:21 Oxygen Delivery Room Air 01/09/24 06:21 Temperature 97.8 F 01/09/24 10:02 Pulse Rate 76 01/09/24 10:02 Respiratory Rate 16 01/09/24 10:02 Blood Pressure 107/69 01/09/24 10:02 Pulse Oximetry 100 01/09/24 10:02 Oxygen Delivery Room Air 01/09/24 06:21 Medical Decision Making MDM Narrative Medical decision making narrative: The patient was evaluated by myself in the emergency department. History is obtained from patient who is an independent historian and physical exam was performed. External medical records were reviewed at this time. IV was established and pertinent tests were ordered. Patient was administered 10 mg of IV Reglan and 1 L IV fluid bolus with normal saline. Patient states that the Reglan only mildly improved her nausea and at this time she was administered 4 mg of IV Zofran. Patient states that IV fluids did improve for her headache. She denies any sudden worst headache of her life se
[2024-01-09 07:21] LABS: Add Urine Microscopic? NO
[2024-01-09 07:30] VITALS: BP 110/80; PULSE 90; RESP 16; TEMP 36.6; O2SAT 98
[2024-01-09] MEDS: SODIUM CHLORIDE 0.9% IV 1,000 ML 999 ML IV CONT ×2 (07:30→09:31)
[2024-01-09] MEDS: ONDANSETRON INJ 4 MG/2 ML VIAL IV PUSH (08:20)
[2024-01-09 08:23] VITALS: BP 111/69; PULSE 92; RESP 16; TEMP 36.6; O2SAT 100
[2024-01-09 08:46] VITALS: BP 105/79; PULSE 94; RESP 16; O2SAT 100
[2024-01-09 09:01] VITALS: BP 111/81; PULSE 76; RESP 16; TEMP 36.7; O2SAT 100
[2024-01-09 10:02] VITALS: BP 107/69; PULSE 76; RESP 16; TEMP 36.6; O2SAT 100
== END 2024-01-09 10:35 | disposition home or self-care (01) ==
PROVIDERS: Emergency Medicine; Emergency Provider Emergency Medicine
DX: O21.1 Hyperemesis gravidarum with metabolic disturbance (principal); O24.111 Pre-existing type 2 diabetes mellitus, in pregnancy, first trimester; O99.331 Smoking (tobacco) complicating pregnancy, first trimester; F17.290 Nicotine dependence, other tobacco product, uncomplicated; Z3A.08 8 weeks gestation of pregnancy; Z79.4 Long term (current) use of insulin
CPT/HCPCS: 36415; 80053; 81003; 81025; 83690; 85025; 96361; 96374; 96375; 99284; J2405; J2765; J7030

== ENCOUNTER 2024-05-30 12:31 | Outpatient (RCR) | payer BC, MEDICAID, SELFPAY ==
[2024-05-30] MEDS: RHO(D) IMMUNE GLOBULIN 300 MCG/2 ML SYRINGE IM (15:50)
== END 2024-08-28 23:59 | disposition home or self-care (01) ==
LOC: ANHLAB 12:31
PROVIDERS: Visit Provider Obstetrics & Gynecology
DX: Z36.89 Encounter for other specified antenatal screening (principal); Z29.13 Encounter for prophylactic Rho(D) immune globulin; O36.0130 Maternal care for anti-D [Rh] antibodies, third trimester, not applicable or unspecified; Z3A.00 Weeks of gestation of pregnancy not specified
CPT/HCPCS: 36415; 85461; 86850; 86900; 86901; 90384; 96372; J2790

== ENCOUNTER 2024-07-29 12:23 | Observation (INO) | payer BC, MEDICAID, SELFPAY ==
--- NOTE | 2024-07-29 14:32 | OBADM ---
This patient, Cande Crawford, admitted to the OB room Labor/Delivery/Recovery 103 for observation. Patient/family oriented to hospital policies and general routines including ID bracelet, bed and alarms, visiting hours, pain management, procedures, bathroom and other care routines, personal items, smoking policy, room service/diet, and visiting hours. Patient/Family are encouraged to report perceived risks to care and to ask questions if they do not understand what they are told or what they should do.
--- NOTE | 2024-07-31 07:38 | PM.OBTRLD ---
OB - Triage/Final Diagnosis Visit Information Comments/Additional reasons for admission: I have assessed the risk for this patient, Cande Crawford, and determined that she would benefit from observation care. Final Diagnosis (1) Irregular contractions: Code(s): O47.9 - False labor, unspecified Status: Acute
== END 2024-07-29 14:48 | disposition home or self-care (01) ==
PROVIDERS: Admitting Provider Obstetrics & Gynecology; Visit Provider Obstetrics & Gynecology
DX: O47.9 False labor, unspecified (principal)
CPT/HCPCS: G0378; G0379

== ENCOUNTER 2024-08-07 09:11 | Outpatient (RCR) | payer BC, MEDICAID, SELFPAY ==
--- NOTE | ~2024-08-07 | US_ITS ---
EXAMINATION: US OB BPP wo non-stress DATE: 07/31/2024 10:13 INDICATION: Decreased movement TECHNIQUE: Real-time pelvic ultrasound was performed. The interpreting radiologist was not present fo r the study. COMPARISON: None. FINDINGS: There is a single living fetus in vertex presentation. The placenta is posterior. cardiac acti vity and movement are demonstrated. heart rate is 153 beats per minute (bpm). Biophysical profile performed by the technologist: breathing (30 sec sustained breathing in 30 minutes): 2 out of 2 movement (3 gross body movements in 30 minutes): 2 out of 2 tone (one episode of wuqzevu-kycafiwft-qaxmqhk limb movement): 2 out of 2 Amniotic fluid pocket (2 cm): 2 out of 2 Total score: 8 out of 8 IMPRESSION: 1. Single living intrauterine in vertex presentation with heart rate of 153 bpm. 2. Normal placenta. 3. Biophysical profile 8 out of 8. Reviewed, dictated and finalized at location B.
--- NOTE | ~2024-08-07 | US_ITS ---
EXAMINATION: US OB BPP wo non-stress DATE: 08/07/2024 INDICATION: Nonreactive nonstress test TECHNIQUE: Real-time pelvic ultrasound was performed. The interpreting radiologist was not present fo r the study. COMPARISON: None. FINDINGS: There is a single living fetus in vertex presentation. The placenta is posterior. heart rate i s 137 beats per minute (bpm). Amniotic fluid volume is subjectively normal with normal deepest vertic al pocket measurement of 6.6 cm. Biophysical profile performed by the technologist: breathing (30 sec sustained breathing in 30 minutes): 2 out of 2 movement (3 gross body movements in 30 minutes): 2 out of 2 tone (one episode of xsqnrfs-lnuunaesv-mhfskoh limb movement): 2 out of 2 Amniotic fluid pocket (2 cm): 2 out of 2 Total score: 8 out of 8 IMPRESSION: 1. Single living fetus in vertex presentation with heart rate of 137 bpm. 2. Biophysical profile 8 out of 8. Reviewed, dictated and finalized at location A.
--- NOTE | 2024-08-07 10:27 | PC.NURSE ---
BPP 07/[address] Jose discharge order received
== END 2024-10-05 09:41 | disposition home or self-care (01) ==
LOC: ANHOBOP 09:11
PROVIDERS: Visit Provider Obstetrics & Gynecology
DX: O36.8390 Maternal care for abnormalities of the fetal heart rate or rhythm, unspecified trimester, not applicable or unspecified (principal)
CPT/HCPCS: 76819

== ENCOUNTER 2024-08-11 00:01 | Inpatient (IN) | payer BC, MEDICAID, SELFPAY ==
[2024-08-11] VITALS (217 sets, daily range): BP systolic 58–138; BP diastolic 31–114; PULSE 73–165; TEMP 36.6–37.1; O2SAT 91–100; BMI 40.0
--- NOTE | 2024-08-11 00:47 | LDADM ---
This patient, Cande Crawford, was admitted to Labor/Delivery/Recovery 104 on 08/11/24 at 00:01. Plans for labor, pain management and were discussed with patient. Patient/family oriented to hospital policies and general routines including ID bracelet, bed and alarms, visiting hours, pain management, procedures, bathroom and other care routines, personal items, smoking policy, room service/diet and guest tray routines, infant security routines, and visiting hours. Patient/Family are encouraged to report perceived risks to care and to ask questions if they do not understand what they are told or what they should do. See OBIX for further documentation.
[2024-08-11 00:52] LABS: Basophils Percent Auto 0.2 % (0.2-1.2); Eosinophils Absolute Auto 0.1 K/mm3 (0-0.3); Hematocrit 33.5 % (37.0-47.0); Hemoglobin 11.3 g/dL (12.0-15.0); Immature Granulocyte Absolute 0.03 K/mm3 (0.00-0.031); Immature Granulocyte Percent A 0.3 % (0-0.5); Lymphocytes Absolute Auto 3.23 K/mm3 (0.9-3.2); Lymphocytes Percent Auto 32.2 % (18.3-44.2); Mean Corpuscular HGB Conc 33.7 g/dl (32-36); Mean Corpuscular Hemoglobin 27.6 pg (26-34); Mean Corpuscular Volume 81.7 fl (80-100); Monocytes Absolute Auto 0.5 K/mm3 (0.1-0.6); Neutrophils Absolute Auto 6.1 K/mm3 (1.3-6.7); Neutrophils Percent Auto 61.3 % (45.5-73.1); Platelet Count Result 278 k/mm3 (150-375); Red Cell Distribution Width 13.9 % (11.5-14.5)
[2024-08-11] MEDS: miSOPROStol 25 MCG TABLET 50 MCG BUCCAL ×3 (01:24→09:19)
[2024-08-11 01:49] LABS: HIV 1/2 Ab P24 Ag Result Negative (Negative)
[2024-08-11 02:09] LABS: Rapid Plasma Reagin Non-Reactive (NonReactive)
[2024-08-11 05:04] LABS: Glucose Point of Care 88 mg/dl (65-105)
--- NOTE | 2024-08-11 08:34 | PM.IMHP ---
H&P: HPI History of Present Illness Date/Time: 08/11/24 08:34 Chief Complaint: medical induction of labor Narrative: Patient is a 28 year old at 39w0d who presents for medical induction of labor, indicated for type 1 diabetes mellitus. She has followed with [facility] and has had excellent glycemic control throughout . She is controlled on insulin pump with CGM. Most recent A1c 5.7%. Most recent growth US demonstrated EFW 76%, AC 90%. She has had reactive testing. Her has been otherwise uncomplicated. She denies nausea, vomiting, abdominal pain, or dysuria. She reports good movement. No vaginal bleeding or leakage of fluid. Review of Systems Review of Systems: All systems reviewed & are unremarkable except as noted in HPI and below PMFSH Family History Family History Father Diabetes mellitus Sibling Diabetes mellitus Social History Social History Smoking status: Never smoker Tobacco type: e-cigarettes/vaping Additional smoking assessment comments: e-cigs x 1 month 2 years ago Alcohol intake: current Drinks per week: 3 Substance use: never Substance use type: other Other substance usage details: gummies Do You Feel Safe in your Home?: Yes Lack of Transportation: No Lack of Food: Never True Current Housing: I Have Housing Concerned About Future Housing: No Difficulty Paying Gas/Electric Bills: No Difficulty Paying for Meds: No Currently Unemployed: No Education: Associate Degree Difficulty w/ Childcare or Family Care: No Spiritual care concerns: No Meds Home Medications and Allergies Home Medications Medication Instructions Recorded Confirmed Type blood-glucose meter (Blood Glucose #1 ea 05/05/22 07/22/24 Rx Monitoring kit) lancets 33 gauge (BD Ultra Fine #100 ea 05/05/22 07/22/24 Rx Lancets) aspirin 81 mg tablet 81 mg PO DAILY 07/22/24 07/22/24 History insulin lispro 100 unit/mL 60 sliding scale dose continuous 07/22/24 08/11/24 History subcutaneous solution subcutaneous infusion DIRECTED vits no.126-ferrous fum 1 tablet PO DAILY 07/22/24 07/22/24 History 28 mg iron-folic acid 800 mcg tablet (Classic ) Allergies Allergy/AdvReac Type Severity Reaction Status Date / Time No Known Allergies Allergy Verified 08/11/24 01:37 Vital Signs Vital Signs - 24 hr 08/11/24 00:23 08/11/24 00:28 08/11/24 00:33 Temperature Pulse Rate Blood Pressure Pulse Oximetry 98 98 98 Oxygen Delivery 08/11/24 00:38 08/11/24 00:43 08/11/24 00:48 Temperature Pulse Rate 86 Blood Pressure 125/65 Pulse Oximetry 98 97 98 Oxygen Delivery 08/11/24 00:53 08/11/24 00:58 08/11/24 01:01 Temperature Pulse Rate 88 Blood Pressure 119/66 Pulse Oximetry 98 98 Oxygen Delivery 08/11/24 01:03 08/11/24 01:08 08/11/24 01:09 Temperature Pulse Rate Blood Pressure Pulse Oximetry 98 95 97 Oxygen Delivery 08/11/24 01:14 08/11/24 01:19 08/11/24 01:24 Temperature Pulse Rate Blood Pressure Pulse Oximetry 98 97 97 Oxygen Delivery 08/11/24 01:29 08/11/24 01:31 08/11/24 01:34 Temperature Pulse Rate 87 Blood Pressure 118/68 Pulse Oximetry 97 97 Oxygen Delivery 08/11/24 01:39 08/11/24 01:44 08/11/24 01:49 Temperature Pulse Rate Blood Pressure Pulse Oximetry 97 97 98 Oxygen Delivery 08/11/24 01:54 08/11/24 01:59 08/11/24 02:01 Temperature Pulse Rate 86 Blood Pressure 123/86 Pulse Oximetry 96 97 Oxygen Delivery 08/11/24 02:04 08/11/24 01:32 08/11/24 02:09 Temperature 98.3 F Pulse Rate Blood Pressure Pulse Oximetry 97 97 Oxygen Delivery 08/11/24 02:14 08/11/24 02:20 08/11/24 02:25 Temperature Pulse Rate Blood Pressure Pulse Oximetry 98 99 98 Oxygen Delivery
[2024-08-11] MEDS: fentaNYL CITRATE INJ (*CRX) 100 MCG/2 ML VIAL 50 MCG IV PUSH ×2 (08:37→13:03)
[2024-08-11] MEDS: ONDANSETRON INJ 4 MG/2 ML VIAL IV PUSH (08:39)
[2024-08-11] MEDS: LACTATED RINGERS 1,000 ML 125 ML IV CONT ×3 (13:12→21:26)
[2024-08-11] MEDS: ACETAMINOPHEN 500 MG TABLET 1000 MG PO (13:23)
--- NOTE | 2024-08-11 17:24 | WPDANESEPP ---
Anes - Eval Pre Procedure Procedure: Labor epidural Date/Time: 08/11/24 17:24 Surgeon: trevin Preop Diagnosis: Abdominal pain with contractions Pre Op Diagnosis: IOL Patient Data Age: 28 Gender: F Height: 1.63 m Weight: 105.9 kg Last Vital Signs Temp 97.9 F 08/11/24 13:00 Pulse 78 08/11/24 16:39 BP 112/51 L 08/11/24 16:39 Pulse Ox 96 08/11/24 07:32 O2 Del Method Room Air 08/11/24 00:58 Allergies Allergy/AdvReac Type Severity Reaction Status Date / Time No Known Allergies Allergy Verified 08/11/24 01:37 Home Medications Medication Instructions Recorded Confirmed Type blood-glucose meter (Blood Glucose #1 ea 05/05/22 07/22/24 Rx Monitoring kit) lancets 33 gauge (BD Ultra Fine #100 ea 05/05/22 07/22/24 Rx Lancets) aspirin 81 mg tablet 81 mg PO DAILY 07/22/24 07/22/24 History insulin lispro 100 unit/mL 60 sliding scale dose continuous 07/22/24 08/11/24 History subcutaneous solution subcutaneous infusion DIRECTED vits no.126-ferrous fum 1 tablet PO DAILY 07/22/24 07/22/24 History 28 mg iron-folic acid 800 mcg tablet (Classic ) Laboratory Tests 08/11/24 08/11/24 00:18 05:00 WBC 10.0 K/mm3 (4.5-10.0) RBC 4.10 L M/mm3 (4.2-5.4) Hgb 11.3 L g/dL (12.0-15.0) Hct 33.5 L % (37.0-47.0) MCV 81.7 fl (80-100) MCH 27.6 pg (26-34) MCHC 33.7 g/dl (32-36) RDW 13.9 % (11.5-14.5) Plt Count 278 k/mm3 (150-375) MPV 11.0 H fl (7.4-10.4) Immature Gran % (Auto) 0.3 % (0-0.5) Neut % (Auto) 61.3 % (45.5-73.1) Lymph % (Auto) 32.2 % (18.3-44.2) Humphreys % (Auto) 5.0 % (2.6-8.5) Eos % (Auto) 1.0 % (0-4.4) Baso % (Auto) 0.2 % (0.2-1.2) Lymph # (Auto) 3.23 H K/mm3 (0.9-3.2) Humphreys # (Auto) 0.5 K/mm3 (0.1-0.6) Eos # (Auto) 0.1 K/mm3 (0-0.3) Baso # (Auto) 0.0 K/mm3 (0.0-0.1) Abs Immat Gran (auto) 0.03 K/mm3 (0.00-0.031) Absolute Neuts (auto) 6.1 K/mm3 (1.3-6.7) Absolute Nucleated RBC 0.000 K/mm3 (0.0-0.012) Nucleated RBC % 0.0 % (0.0-0.2) POC Capillary Glucose 88 mg/dl (65-105) RPR Non-reactive (NonReactive) HIV 1&2 Ab/P24 Ag 4thGn Negative (Negative) Blood Type A Negative Antibody Screen Negative : gestational age HCG: positive Patient hx anesthesia problems: none Family hx anesthesia problems: none Results Review: All pre-operative results and documents have been reviewed as part of the pre-operative evaluation. [facility] Past Medical History Medical History (Updated 08/11/24 @ 17:26 by Lazaro Lopez Jr., CRNA) Anxiety Marijuana abuse Morbid obesity and not yet delivered Type 1 diabetes mellitus complicating in third trimester, antepartum Family History Family History Father Diabetes mellitus Sibling Diabetes mellitus Social History Social History Smoking status: Never smoker Tobacco type: e-cigarettes/vaping Additional smoking assessment comments: e-cigs x 1 month 2 years ago Alcohol intake: current Drinks per week: 3 Substance use: never Substance use type: other Other substance usage details: gummies Do You Feel Safe in your Home?: Yes Lack of Transportation: No Lack of Food: Never True Current Housing: I Have Housing Concerned About Future Housing: No Difficulty Paying Gas/Electric Bills: No Difficulty Paying for Meds: No Currently Unemployed: No Education: Associate Degree Difficulty w/ Childcare or Family Care: No Spiritual care concerns: No Exam Day of Procedure 08/11/24 17:24
[2024-08-11] MEDS: TERBUTALINE SULFATE 1 MG/ML VIAL 0.25 MG SUB-Q (18:46)
[2024-08-11] MEDS: OXYTOCIN 30 UNITS/NS 500 ML 30 UNITS/500 ML BAG IV CONT (23:00)
[2024-08-12] VITALS (102 sets, daily range): BP systolic 88–142; BP diastolic 50–83; PULSE 67–129; RESP 16–20; TEMP 36.4–37.2; O2SAT 81–100
[2024-08-12] MEDS: LACTATED RINGERS 1,000 ML 125 ML IV CONT ×3 (01:09→16:03)
[2024-08-12] MEDS: ONDANSETRON INJ 4 MG/2 ML VIAL IV PUSH (07:14)
[2024-08-12] MEDS: AZITHROMYCIN 500 MG/NS 250 ML 500 MG/250 ML BAG 250 MG IVPB (07:52)
[2024-08-12] MEDS: ACETAMINOPHEN 500 MG TABLET 1000 MG PO (07:56)
--- NOTE | 2024-08-12 07:56 | WPDHPUPDATE1 ---
History and Physical Update Update Date/Time: 08/12/24 07:56 History and Physical has been reviewed, including an updated exam of the patient. Persistent category II FHR tracing with any pitocin administration, SVE unchanged x12 hours. Discussed inability to proceed with induction due to intolerance to labor. Risks and benefits for primary c section discussed with patient who voices understanding and agrees to proceed with primary c section. Risks, benefits, and alternatives have been discussed and questions answered. Patient agrees to proceed with procedure.
[2024-08-12] MEDS: FAMOTIDINE 20 MG/2 ML VIAL IV PUSH (07:57)
--- NOTE | 2024-08-12 07:58 | WPDANESEPPF ---
Anes - Initial Pre Proc Eval Procedure: Operation Date: 08/12/24 08:30 Proposed Procedures p Section - Foster Jose MD Date/Time: 08/12/24 07:58 Surgeon: Foster Jose MD Pre Op Diagnosis: IOL Patient Data Age: 28 Gender: F Height: 1.63 m Weight: 105.9 kg Last Vital Signs Temp 36.9 C 08/12/24 06:09 Pulse 90 08/12/24 07:46 BP 122/59 L 08/12/24 07:46 Pulse Ox 81 L 08/12/24 07:50 O2 Del Method Room Air 08/11/24 00:58 Allergies Allergy/AdvReac Type Severity Reaction Status Date / Time No Known Allergies Allergy Verified 08/11/24 01:37 Home Medications Medication Instructions Recorded Confirmed Type blood-glucose meter (Blood Glucose #1 ea 05/05/22 07/22/24 Rx Monitoring kit) lancets 33 gauge (BD Ultra Fine #100 ea 05/05/22 07/22/24 Rx Lancets) aspirin 81 mg tablet 81 mg PO DAILY 07/22/24 07/22/24 History insulin lispro 100 unit/mL 60 sliding scale dose continuous 07/22/24 08/11/24 History subcutaneous solution subcutaneous infusion DIRECTED vits no.126-ferrous fum 1 tablet PO DAILY 07/22/24 07/22/24 History 28 mg iron-folic acid 800 mcg tablet (Classic ) : gestational age HCG: positive Patient hx anesthesia problems: none Family hx anesthesia problems: none Results Review: All pre-operative results and documents have been reviewed as part of the pre-operative evaluation. [facility] Past Medical History Medical History (Updated 08/11/24 @ 17:26 by Lazaro Lopez Jr., [employer]) Anxiety Marijuana abuse Morbid obesity and not yet delivered Type 1 diabetes mellitus complicating in third trimester, antepartum Family History Family History Father Diabetes mellitus Sibling Diabetes mellitus Social History Social History Smoking status: Never smoker Tobacco type: e-cigarettes/vaping Additional smoking assessment comments: e-cigs x 1 month 2 years ago Alcohol intake: current Drinks per week: 3 Substance use: never Substance use type: other Other substance usage details: gummies Do You Feel Safe in your Home?: Yes Lack of Transportation: No Lack of Food: Never True Current Housing: I Have Housing Concerned About Future Housing: No Difficulty Paying Gas/Electric Bills: No Difficulty Paying for Meds: No Currently Unemployed: No Education: Associate Degree Difficulty w/ Childcare or Family Care: No Spiritual care concerns: No Anes - Eval Final PreProcedure Day of Procedure 08/12/24 07:58 Patient weight: morbidly obese Heart: regular rate and rhythm Lungs: clear to auscultation Airway: Mallampati scale class II Neurological: alert and oriented ASA classification: III Emergent: no Anesthetic plan: proceed Anesthesia type and monitoring: regional epidural and standard monitoring Other findings: will use existing epid for C/S Results Review: All pre-operative results and documents have been reviewed as part of the pre-operative evaluation. Informed Consent: The patient's anesthetic plan and its attendant risks and benefits were discussed with the patient/family/POA. Questions were solicited and answers provided to the satisfaction of the patient/family/POA.
[2024-08-12] MEDS: ceFAZolin 2 GM/D5W 50 ML 2 GM/50 ML BAG 100 GM (08:05)
[2024-08-12 09:21] LABS: Glucose Point of Care 104 mg/dl (65-105)
[2024-08-12] MEDS: LORATADINE 10 MG TABLET PO (10:04)
[2024-08-12] MEDS: OXYTOCIN 30 UNITS/NS 500 ML 30 UNITS/500 ML BAG 125 UNITS IV CONT (10:05)
[2024-08-12] MEDS: MORPHINE SULFATE INJ (*CRX) 10 MG/ML AMP 3 MG IV PUSH ×2 (10:25→10:37)
[2024-08-12] MEDS: LIDOCAINE 5% PATCH 1 PATCH TRANSDERM (10:31)
--- NOTE | 2024-08-12 13:20 | PC.NURSE ---
Breast pump provided due to [ in level 2]. Instructions given on cleaning, care, usage, that there should be no pain, pumping schedule for milk production, collection, and storage of human milk. Patient was assessed for correct placement, flange size (21mm), to pump for stimulation for adequate milk production every 3 hours (8 times in 24 hours) 1-2 times at night. She has a hand pump and a wearable pump from her insurance.?Mother voiced understanding of the education shared along with mom/baby guide for additional resource information. Pt will call if there are any other questions or concerns with pumping. Reported to the Primary RN.
[2024-08-12] MEDS: KETOROLAC 15 MG/ML VIAL (*BKC) IV PUSH ×2 (14:44→23:45)
[2024-08-12] MEDS: SIMETHICONE 80 MG TAB.CHEW PO (14:44)
[2024-08-12] MEDS: ACETAMINOPHEN 325 MG TABLET 650 MG PO ×2 (14:44→23:45)
--- NOTE | 2024-08-12 17:30 | PC.NURSE ---
1700. Mom pumped 3ml of colostrum. Colostrum taken to baby downstairs in level 2 nursery.
[2024-08-13 04:33] LABS: Basophils Percent Auto 0.3 % (0.2-1.2); Eosinophils Absolute Auto 0.1 K/mm3 (0-0.3); Eosinophils Percent Auto 1.1 % (0-4.4); Hematocrit 31.3 % (37.0-47.0); Hemoglobin 10.1 g/dL (12.0-15.0); Immature Granulocyte Absolute 0.04 K/mm3 (0.00-0.031); Immature Granulocyte Percent A 0.4 % (0-0.5); Lymphocytes Absolute Auto 2.68 K/mm3 (0.9-3.2); Lymphocytes Percent Auto 25.8 % (18.3-44.2); Mean Corpuscular HGB Conc 32.3 g/dl (32-36); Mean Corpuscular Hemoglobin 27.3 pg (26-34); Mean Corpuscular Volume 84.6 fl (80-100); Mean Platelet Volume 11.1 fl (7.4-10.4); Monocytes Absolute Auto 0.6 K/mm3 (0.1-0.6); Monocytes Percent Auto 5.6 % (2.6-8.5); Neutrophils Absolute Auto 6.9 K/mm3 (1.3-6.7); Neutrophils Percent Auto 66.8 % (45.5-73.1); Platelet Count Result 229 k/mm3 (150-375); Red Cell Distribution Width 14.1 % (11.5-14.5); White Blood Count 10.4 K/mm3 (4.5-10.0)
[2024-08-13] MEDS: KETOROLAC 15 MG/ML VIAL (*BKC) IV PUSH ×2 (06:56→13:23)
[2024-08-13] MEDS: ACETAMINOPHEN 325 MG TABLET 650 MG PO ×3 (06:57→19:12)
[2024-08-13] MEDS: DOCUSATE SODIUM 100 MG CAPSULE PO ×2 (06:58→16:53)
[2024-08-13] MEDS: SIMETHICONE 80 MG TAB.CHEW PO ×3 (06:59→16:53)
[2024-08-13] MEDS: MULTIVIT/MIN/PREN/FOL AC/IRON TABLET 1 TAB PO (06:59)
[2024-08-13 08:00] VITALS: BP 122/82; PULSE 80; RESP 18; TEMP 36.6; O2SAT 100
--- NOTE | 2024-08-13 08:39 | PM.OBPNVD ---
OB - PN: Subj Subjective Date/time seen: 08/13/24 08:39 Patient comments: no complaints, pain well controlled, tolerating diet and flatus present OB - PN: Obj Data Labs 08/13/24 03:09 Labs: Laboratory Results - last 24 hr 08/12/24 08/13/24 09:18 03:09 WBC 10.4 H RBC 3.70 L Hgb 10.1 L Hct 31.3 L MCV 84.6 MCH 27.3 MCHC 32.3 RDW 14.1 Plt Count 229 MPV 11.1 H Immature Gran % (Auto) 0.4 Neut % (Auto) 66.8 Lymph % (Auto) 25.8 Jones % (Auto) 5.6 Eos % (Auto) 1.1 Baso % (Auto) 0.3 Lymph # (Auto) 2.68 Jones # (Auto) 0.6 Eos # (Auto) 0.1 Baso # (Auto) 0.0 Abs Immat Gran (auto) 0.04 H Absolute Neuts (auto) 6.9 H Absolute Nucleated RBC 0.000 Nucleated RBC % 0.0 POC Capillary Glucose 104 OB - PN A/P Plan day: 1 Comments: Post Op LTCS - no problems, routine recovery Time Spent With Patient Time: Total time spent is greater than 50% in coordination of care (as documented) at patient's floor/unit and/or counseling patient: Exam Const: General: cooperative, healthy appearing, comfortable and no acute distress Resp: Auscultation: no crackles, no rales, no rhonchi and no wheezes Cardio: Rhythm: regular rhythm Heart sounds: no click and no murmurs GI: Inspection: non-distended Auscultation: normal bowel sounds Extrem: General: normal to inspection, no pedal edema and no calf tenderness
[2024-08-13] MEDS: HYDROcodone/acetaminophen (*CRX) 5-325 MG TABLET 1 TAB PO ×3 (08:54→20:08)
[2024-08-13] MEDS: LANOLIN (LANSINOH) 7.5 GM CREAM 1 APPLIC TOPICAL (10:29)
--- NOTE | 2024-08-13 10:30 | PC.NURSE ---
Introductions were made and communication board updated. Mother called RN to bedside to check that her pump is fitting correctly. Mother is currently using 21mm flange, which is the appropriate size. Mother is independently feeding in level 2 nursery before pumping with each feeding and explains that is going well and she states there isnt pain when infant is latched.
--- NOTE | 2024-08-13 10:51 | WPDANLDPN2 ---
Anes-Prog Note L&D Date/Time: 08/13/24 10:51 Comfortable throughout: labor and section Neuraxial method: epidural Epidural/Spinal procedure site: clean & non-tender Neuro status: Neuro function grossly intact. Cardiovascular status: normal Respiratory status: normal Airway patency: baseline Mental status: baseline Post-Op hydration status: normal Vital Signs: Last Vital Signs Temp 36.6 C 08/12/24 23:51 Pulse 85 08/12/24 23:51 Resp 20 08/12/24 23:51 BP 123/70 08/12/24 23:51 Pulse Ox 98 08/12/24 23:51 O2 Del Method Room Air 08/13/24 08:00 Pain score (VAS): 2/10 I/O: Intake & Output 08/12/24 08/13/24 08/13/24 23:59 07:59 15:59 Intake Total 500 980 700 Output Total 600 1050 400 Balance -100 -70 300 Post-procedural complaints: none Patient feedback: Patient satisfied with anesthetic care.
--- NOTE | 2024-08-13 10:52 | WPDANLDNPN2 ---
Anes-Prog Note L&D-Neuraxial Date/Time: 08/13/24 10:52 Neuraxial medications: epidural PF morphine Opiod-related complaints: none Patient feedback: Patient satisfied with post-operative pain management.
[2024-08-13 19:10] VITALS: BP 118/76; PULSE 87; RESP 18; TEMP 36.6; O2SAT 99
[2024-08-13] MEDS: IBUPROFEN 600 MG TABLET PO (19:13)
[2024-08-14] MEDS: ACETAMINOPHEN 325 MG TABLET 650 MG PO ×4 (03:45→22:44)
[2024-08-14] MEDS: IBUPROFEN 600 MG TABLET PO ×4 (03:45→22:44)
[2024-08-14 07:30] VITALS: BP 120/79; PULSE 80; RESP 18; TEMP 36.7; O2SAT 99
--- NOTE | 2024-08-14 07:58 | PM.OBPNVD ---
OB - PN: Subj Subjective Date/time seen: 08/14/24 07:58 Interval history: pp day 2 doing well flatus present voiding without difficulty OB - PN: Obj Data Labs 08/13/24 03:09 OB - PN A/P Plan day: 2 Time Spent With Patient Time: Total time spent is greater than 50% in coordination of care (as documented) at patient's floor/unit and/or counseling patient: Review of Systems Review of Systems: All systems reviewed & are unremarkable except as noted in HPI and below Exam Const: General: cooperative Resp: Effort & Inspection: normal respiratory effort Cardio: Rate: regular rate GI: Other: incision CDI
--- NOTE | 2024-08-14 08:40 | P.PCNOB_ITS ---
OB - Delivery Note Procedure Delivery date: 08/12/24 Pre-op diagnosis: Diabetes Mellitus (type 1), Decelerations and Non- Reassuring Status Post-op Diagnosis: Same Delivery monitor: External FHT Prior to decision for section, ACOG/SM labor guidelines were considered and discussed with the patient and staff. Decision made to proceed with the section.: Yes Procedure Performed: Primary Primary branch: low cervical, transverse Surgeon: Foster Jose MD Anesthesia type: Epidural Description of Procedure/Findings: The patient was taken to the operating room where she was placed in the dorsal supine position with a leftward tilt. The electronic monitor was placed and heart rate was found to be reassuring. She was prepped and draped in the normal sterile fashion, and anesthesia was checked to be adequate. A Pfannenstiel skin incision was made with the scalpel and carried through to the underlying layer of fascia with the scalpel. The fascia was incised in the midline and the incision extended laterally with the Warner scissors. The superior aspect of the fascial incision was then grasped with Escobar clamps, elevated, and the underlying rectus muscles dissected off bluntly and with Warner scissors. Attention was then turned to the inferior aspect of the fascial incision, which in similar fashion was grasped, elevated, and the rectus muscles dissected off.? The rectus muscles were then in the midline, and the peritoneum entered bluntly. The peritoneal incision was extended superiorly and inferiorly with good visualization of the bladder. With the bladder blade providing retraction and visualization, the lower uterine segment was incised in a transverse fashion with the scalpel. The uterine incision was then extended laterally. The bladder blade was removed and the infant's head was elevated and delivered atraumatically. The remainder of the was then delivered without difficulty, and the infant's nose and mouth were suctioned with the bulb suction. The umbilical cord was doubly clamped and cut. The infant was then handed off to the waiting nursing staff. Specimens then obtained as listed below. The placenta was then removed manually and the uterus was exteriorized and cleared of all clots and debris. The uterine incision was repaired with 0- Monocryl in a running, interlocked fashion. A second layer of the same suture imbricated the incision and ensured hemostasis. The posterior cul-de-sac was manually cleared of all clots and debris. The uterus was returned to the abdomen. The gutters were then manually cleared of all clots and debris.? The uterine incision was visualized to be hemostatic. The fascia was reapproximated with 0-Vicryl in a running fashion. The subcutaneous tissues were irrigated with warmed normal saline, and hemostasis was assured. The skin was closed with 4-0 monocryl in a running subcuticular stitch. Fundal pressure was applied to express remaining intrauterine clots and debris. The patient tolerated the procedure well. Sponge, lap, and needle counts were correct times three per nursing. The patient was taken to the recovery room in stable condition. Specimen: No Urine Output: 400 Pathology: Yes Complications: No immediate complications Condition: Stable Disposition: Floor [place] Baby Gestational Age by Date: 39 Infant gender: Male presentation: vertex Placenta delivery description: Expressed
[2024-08-14] MEDS: MULTIVIT/MIN/PREN/FOL AC/IRON TABLET 1 TAB PO (09:01)
[2024-08-14] MEDS: SIMETHICONE 80 MG TAB.CHEW PO ×3 (09:01→16:42)
[2024-08-14] MEDS: DOCUSATE SODIUM 100 MG CAPSULE PO ×2 (09:01→16:42)
[2024-08-14] MEDS: HYDROcodone/acetaminophen (*CRX) 5-325 MG TABLET 1 TAB PO (09:01)
--- NOTE | 2024-08-14 09:15 | PC.NURSE ---
This RN checked-in on patient to see how feedings went overnight. Mother stated that she had a small blister on her left nipple. Educated mother on deepening her latch and assuring that baby is maintaining a deep latch. This RN assisted with placing on the right breast in football hold. latches appropriately but does not maintain latch. Mother is currently doing a [id number] feeding plan (per mothers preference) and states that she will pump and feed infant a bottle. Lansinoh is being used on the nipples to prevent soreness and help minimize pain from her blister. Mother will call this RN for assistance, if needed.
[2024-08-14] MEDS: LIDOCAINE 5% PATCH 1 PATCH TRANSDERM (10:45)
[2024-08-14 19:50] VITALS: BP 130/80; PULSE 94; RESP 18; TEMP 36; O2SAT 99
[2024-08-15] MEDS: ACETAMINOPHEN 325 MG TABLET 650 MG PO ×2 (04:45→10:57)
[2024-08-15] MEDS: IBUPROFEN 600 MG TABLET PO ×2 (04:45→10:57)
--- NOTE | 2024-08-15 07:49 | PM.OBPNVD ---
OB - PN: Subj Subjective Date/time seen: 08/15/24 07:49 Interval history: pp day 2 doing well flatus present voiding without difficulty Patient comments: no complaints, pain well controlled, incisional pain, tolerating diet and flatus present OB - PN: Obj Data Labs 08/13/24 03:09 OB - PN A/P Plan day: 3 Plan: routine care, discharge home and other Comments: Incision check in one week. Given precautions Time Spent With Patient Time: Total time spent is greater than 50% in coordination of care (as documented) at patient's floor/unit and/or counseling patient: Exam Const: General: comfortable, no acute distress and alert Resp: Effort & Inspection: normal respiratory effort Auscultation: no crackles, no rales and no rhonchi Cardio: Rate: regular rate Heart sounds: no click, no murmurs and no rubs GI: Inspection: non-distended GI Palp: No Tenderness to palpation present (GI) Auscultation: normal bowel sounds Other: Incision - CDI Extrem: General: normal to inspection, no pedal edema and no calf tenderness
--- NOTE | 2024-08-15 07:51 | PM.OBDSVD ---
DS: Admitting Diagnosis Discharge Date August 15, 2024 Admitting Diagnosis term OB - DS: Summary OB Procedures : None OB Procedures Intrapartum: OB Procedures: : None Peripartum Data Procedures: Procedures Operation Date: 08/12/24 08:30 Actual Procedure Side Surgeon p Section Foster Jose MD Time Spent with Patient Time attestation: Total time spent providing and/or coordinating discharge services: DS: Data Data Completed and Pending Completed studies during hospitalization: Pending at discharge 08/12/24 08:49 Surgical [PTH] Routine Discharge Plan Discharge Discharging Clinician: Humberto Menard Patient Disposition: Home, Self-Care Activity: pelvic rest Diet: regular Patient Instructions: Antibiotic Form Stand Alone Forms: General Discharge Information Follow-up/Referrals: Humberto Menard MD [Physician] - Discharge Medications: New oxycodone-acetaminophen 5-325 mg tablet 1 tablet PO Q4H PRN (Reason: pain) Qty: 25 0RF Continued (DME) blood-glucose meter [Blood Glucose Monitoring] Kit Qty: 1 0RF Rx Instructions: Check Blood sugar QID (DME) lancets [BD Ultra Fine Lancets] 33 gauge Misc Qty: 100 0RF Rx Instructions: Check Blood sugar QID aspirin 81 mg Tablet 81 mg PO DAILY insulin lispro 100 unit/mL Solution 60 sliding scale dose continuous subcutaneous infusion DIRECTED Rx Instructions: insulin pump Classic 28 mg iron- 800 mcg Tablet 1 tablet PO DAILY Date of admission: 08/11/24 00:01 Primary Care Provider: UNKNOWN,DOCTOR Admitting Provider: Foster Jose Attending physician on admission: Foster Jose Condition: Stable
[2024-08-15 08:00] VITALS: BP 108/79; PULSE 82; RESP 18; TEMP 36.2
[2024-08-15] MEDS: LIDOCAINE 5% PATCH 1 PATCH TRANSDERM (10:56)
[2024-08-15] MEDS: SIMETHICONE 80 MG TAB.CHEW PO (10:56)
[2024-08-15] MEDS: MULTIVIT/MIN/PREN/FOL AC/IRON TABLET 1 TAB PO (10:57)
[2024-08-15] MEDS: DOCUSATE SODIUM 100 MG CAPSULE PO (10:57)
[2024-08-15] MEDS: MEASLES,MUMPS,RUBELLA VACCINE 0.5 ML VIAL (10:58)
[2024-08-17 09:39] VITALS: BP 128/77; PULSE 78; RESP 18; TEMP 36.8; O2SAT 100
== END 2024-08-15 12:15 | disposition home or self-care (01) | DRG 788 ==
LOC: ANHOB2 08-15 11:18 → ANHLDR 08-17 11:26 → ANHOB2 08-17 11:26
PROVIDERS: Admitting Provider Obstetrics & Gynecology; Visit Provider Obstetrics & Gynecology
PROC: 10D00Z1 Extraction of Products of Conception, Low, Open Approach (ICD-10-PCS; CPT 59514; principal; 2024-08-12 08:30)
DX: O24.02 Pre-existing type 1 diabetes mellitus, in childbirth (principal); Z37.0 Single live birth; Z3A.39 39 weeks gestation of pregnancy; O36.8330 Maternal care for abnormalities of the fetal heart rate or rhythm, third trimester, not applicable or unspecified
CPT/HCPCS: 36415; 82948; 85025; 86592; 86703; 86850; 86900; 86901; 88307; 90710; A9270; G0432; J0456; J0690; J1885; J2270; J2274; J2405; J2590; J2795; J3010; J3105; J7120